=== PATIENT | female | born 1960 | race Caucasian/White ===

== ENCOUNTER 2020-01-07 11:39 | Inpatient (IN) | payer MEDICAID ==
[2020-01-07] VITALS (7 sets, daily range): BP systolic 112–141; BP diastolic 70–80
[~2020-01-07] VITALS: Ht 152.4 cm; Wt 58.9 kg
[2020-01-07] MEDS ORDERED: ACETAMINOPHEN325 MG PO (11:47)
[2020-01-07] MEDS ORDERED: ZYLOPRIM100 MG PO (11:48)
[2020-01-07] MEDS ORDERED: NEURONTIN 400400 MG PO (11:48)
[2020-01-07] MEDS ORDERED: LEVOXYL25 MCG PO (11:48)
[2020-01-07] MEDS ORDERED: ASPIRIN325 MG PO (11:48)
[2020-01-07] MEDS ORDERED: BETAPACE 80 MG80 MG PO (11:49)
[2020-01-07] MEDS ORDERED: OMEPRAZOLE20 M1 PO (11:49)
[2020-01-07] MEDS ORDERED: TYLENOL #4 W/CO1 TAB PO (11:49)
[2020-01-07] MEDS ORDERED: PROTONIX40 MG PO (11:50)
[2020-01-07 13:28] LABS: HEMATOCRIT 33.9 % (36.0-48.0); HEMOGLOBIN 9.1 g/dL (12-16); MCH 23.9 pg (26.0-34.0); MCHC 26.8 g/dL (31.0-37.0); MCV 89.2 fL (80.0-100.0); MEAN PLATELET VOLUME 8.7 fL (7.4-10.4); PLATELET COUNT 547 10x3/uL (130-400); RDW 19.8 % (11.5-14.5); WBC 30.5 10x3/uL (4.8-10.8)
[2020-01-07 13:31] LABS: APTT 30.8 SECONDS (22.8-39.4); CALC OSMOLALITY 264 mosm/kg (275-300); CALCIUM 7.9 mg/dL (8.5-10.1); CARBON DIOXIDE 27.5 mmol/L (21.0-32.0); CHLORIDE - SERUM 98 mmol/L (98-107); CREATININE - SERUM 0.9 mg/dL (0.6-1.3); GLUCOSE 108 mg/dL (74-106); INR 1.05 (0.85-1.17); POTASSIUM - SERUM 4.2 mmol/L (3.5-5.1); PROTIME 13.7 SECONDS (11.6-15.0); SODIUM 130 mmol/L (136-145); UREA NITROGEN 20 mg/dL (7-18); eGFR NON AFRICAN AMERICAN 67 mL/min (90-120)
[2020-01-07 13:48] LABS: ALBUMIN 2.6 g/dL (3.4-5.0); ALKALINE PHOSPHATASE 96 U/L (30-120); ALT (SGPT) 9 U/L (10-68); BILIRUBIN - TOTAL 0.28 mg/dL (0.2-1.3); CKMB 0.7 U/L (0.0-3.6); CREATINE KINASE 43 UL (21-215); MAGNESIUM - SERUM 1.9 mg/dL (1.8-2.4); PROTEIN - SERUM 8.2 g/dL (6.4-8.2); TROPONIN-I < 0.017 ng/mL (0.000-0.060)
[2020-01-07 15:10] LABS: LYMPHOCYTES 9 % (15-50); MONOCYTES 1 % (2-11); NEUTROPHILS 90 % (40-80); PLATELET ESTIMATE INCREASED
--- NOTE | 2020-01-07 17:17 | NUR ---
CALLED MED 2 TO GIVE REPORT. MARIA GUADALUPE IN ROOM AND UNABLE TO TAKE REPORT, WILL CALL BACK.
--- NOTE | 2020-01-07 19:00 | NUR ---
CODE SEPSIS CALLED TO 2134. PT NOTED TO HAVE TEMP 101.1 HR 111 SINUS TACK, WBC 30. BLOOD CULTURES X2 ORDERED STAT WELL LACTIC ACID. DR MAIN PAGED BEN MOJICA CALLED BACK GIVEN UPDATE. STATED WOULD PUT OWN ORDERS IN FOR ABX AND FLUIDS. SEPSIS SHEET HANDOFF COMPLETE BY CHANDNI CONCEPCION LPN.
[2020-01-07 19:18] LABS: CKMB 0.5 U/L (0.0-3.6); CREATINE KINASE 72 UL (21-215); TROPONIN-I < 0.017 ng/mL (0.000-0.060)
[2020-01-08] VITALS (15 sets, daily range): BP systolic 94–152; BP diastolic 60–90; Ht 152.4 cm; Wt 58.9 kg
[2020-01-08 00:14] LABS: BILIRUBIN NEGATIVE (NEGATIVE); GLUCOSE NEGATIVE (NEGATIVE); KETONE NEGATIVE (NEGATIVE); NITRITE NEGATIVE (NEGATIVE); SPECIFIC GRAVITY 1.015 (1.005-1.020); UROBILINOGEN NORMAL (NORMAL)
[2020-01-08] MEDS ORDERED: BENTYL 20 MG TA20 MG PO (01:35)
[2020-01-08 02:49] LABS: BASOPHILS 0 % (0-2); EOSINOPHILS 0 % (0-7); HEMATOCRIT 31.2 % (36.0-48.0); HEMOGLOBIN 8.6 g/dL (12-16); IMMATURE GRANULOCYTES 0.5 % (0-5); LYMPHOCYTES 2.7 % (15-50); MCHC 27.6 g/dL (31.0-37.0); MCV 87.2 fL (80.0-100.0); MEAN PLATELET VOLUME 8.7 fL (7.4-10.4); MONOCYTES 8.5 % (2-11); NEUTROPHILS 88.3 % (40-80); PLATELET COUNT 463 10x3/uL (130-400); RBC 3.58 10x6/uL (4.00-5.40); RDW 19.5 % (11.5-14.5); WBC 30.2 10x3/uL (4.8-10.8)
[2020-01-08 03:16] LABS: ALBUMIN 2.2 g/dL (3.4-5.0); ALKALINE PHOSPHATASE 81 U/L (30-120); ALT (SGPT) 8 U/L (10-68); BILIRUBIN - TOTAL 0.28 mg/dL (0.2-1.3); CALC OSMOLALITY 265 mosm/kg (275-300); CALCIUM 7.4 mg/dL (8.5-10.1); CARBON DIOXIDE 27.2 mmol/L (21.0-32.0); CHLORIDE - SERUM 100 mmol/L (98-107); CKMB 0.3 U/L (0.0-3.6); CREATINE KINASE 143 UL (21-215); CREATININE - SERUM 0.7 mg/dL (0.6-1.3); GLUCOSE 119 mg/dL (74-106); MAGNESIUM - SERUM 1.9 mg/dL (1.8-2.4); POTASSIUM - SERUM 3.7 mmol/L (3.5-5.1); PROTEIN - SERUM 7.3 g/dL (6.4-8.2); SODIUM 132 mmol/L (136-145); TROPONIN-I < 0.017 ng/mL (0.000-0.060); eGFR NON AFRICAN AMERICAN 90 mL/min (90-120)
[2020-01-08 03:20] LABS: UREA NITROGEN 13 mg/dL (7-18)
--- NOTE | 2020-01-08 09:23 | NUR ---
PT OPENS EYES AND RESPONDS BUT FALLS ASLEEP QUICKLY. LYING IN BED ON BACK. STATES SHE FEELS TIRED. CL IN REACH, SRX2
--- NOTE | 2020-01-08 10:26 | NUR ---
WENT INTO PTS ROOM AT 0950 TO FIX IV PUMP. PT STATES SHE NEEDS TO USE THE BATHROOM. STATES SHE WANTS TO WALK. I TRIED FOR *10* MINUTES TO ASSIST HER IN GETTING UP. PT KEPT DRAMATICALLY FALLIING BACK INTO BED. INFORMED PT WE WOULDJ UST BE USING A BEDPAN IF SHE WS SO WEAK SHE COULD NOT WLAK. GOT BED CARTAGENA. TOLD PT TO ROLL. BARE IN MIND PT WAS PREVIOUSLY UP AD QUE. PT WOULD.NOT.ROLL. SHE KEP SIGHING AND STATING HSE WS WEAK AND COULDN'T ROLL BEACUSE HER ARM HURTS TOO MUCH OTDAY AND COMPLAINED I WAS NOT DOING IT RIGHT. I INFORMED PT I WOULD JUST HAVE TO ROLL HER THEN, I ATTEMPTED AN DPT SCREAMED AT ME. AT THAT POINT IT HAD BEEN ALMOST 20 MINUTES IN THE ROOM. FUENTES ZELAYA ARRIVED TO [facility] SINCE PT STATED SHE COULD NOT DO IT AND I COULD NOT DO IT. PT STILL DID IT EXTREMELY SLOWLY (ROLLING), FINALLY RN AND I HAD TO JUST ROLL HER AND PUT THE BED CARTAGENA ON. PT WAS UNAHPPY BUT I INFORMED HER IF HSE NEEDED TO URINATE AND COULDN'T WALK AND COULD NOT ROLL WE WOULD HAVE TO ASSIST HER. PT SAT ON BEDPAN FOR 5 MINUTES AND ANGRILY STATED SHE COULDN'T DO IT SHE WANTED TO GO TO THE BATHROOM. PT STATES SHE CAN WALK, THAT SHE DIDN'T FALL BACK INTO BED EARLIER (WHICH I OBSERVED HAPPEN WITH MY OWN EYES) AND THAT I JUST ASSISTED HER WRONG. RN AND I TOLD HER FINE, TOOK OFF THE BEDPAN MUCH TO PTS ANGER BECAUSE SHE STATED WE WERE HURTING HER. THIS WAS NOT OUR INTENTION WE JUST NEEDED HER TO GO TO THE BATHROOM. PT TOOK BEDPAN OUT HERSELF. WE ATTEMTPED TO ASSIST WITH SITTING HER ON THE SIDE OF THE BED, PT STATES NO THAT SHELL NEED TO ARRANGE HER PILLOWS JUST RIGHT FIRST. WAITED ANOTHER SEVERAL MINUTES FOR THAT. PT FINALLY ALOUD US TO SIT HER UP ON THE SITDE OF THE BED. SHE WALKED WITH STANDBY ASSIST TO COMMODE AND SATDOWN WITHOUT DIFFICULTY. PT TOOK SEVERAL MORE MINUTES TO URINATE. ASSISTED BACK TO BED. PT WANTED US TO STAY IN THERE AND ASSIST HER WITH ALL MINOR MINUPLATIONS OR HER PILLOWS AND BLANKETS. INSISTED WE LIFT HER LEGS INTO BED SHE COULD NOT DO IT POST WALKING WITHOUT DIFFICULTY. PT NOWBACK IN BED. CL IN REACH, SRX2.
--- NOTE | 2020-01-08 11:22 | NUR ---
I have reviewed this patient and I concur with the Shift Assessment completed by the Licensed Practical Nurse today this shift.
--- NOTE | 2020-01-08 15:18 | NUR ---
PT AWAKE AND CONFUSED. ORDERS WERE PUT IN FOR PREOP BUT NOT ACTUAL CONSENTS. DR LOCKWOOD ROUNDED, I WENT INTO THE ROOM WITH HIM. DURING THAT TIME PT CALLED. WAS DISCOVERED PT HAS EXTENSIVE GI HISTORY WITH MULTIPLE SURGERIES (TYPE UNCLEAR) AND AT LEAST ONE ATTEMPT TO OPEN A STRICTURE SOMEWHERE. RADIOLOGY CAME IN, DR. LOCKWOOD ORDERED HER TO DO A I/V CONTRAST CT ALONG WITH THE ORAL. THIS WAS UNEXPECTED. AT THIS TIME ANASTHESIA CAME IN AND DISCOVERED PT WAS COVID PUI. THIS WAS AN UNPLESANT DISCOVERY FOR THEM. PT WAS IMMEDIATELY TAKEN TO CT PER MANDIE. AT THAT TIME THERE WERE NO ORDERS. SURGERY WAS NOT PLEASED BUT I COULD NOT GET CONCSENTS SIGNED THAT WERE NOT AVALIABLE. PT IN SURGERY.
--- NOTE | 2020-01-08 17:15 | NUR ---
RECEIVED FROM OF, PER BED. SKIN WARM AND DRY. ABD DRESSING DRY AND INTACT. NIRMALA DRAINS X [address]. SEROUS DRAINAGE IN BOTH CONTAINERS. WEBSTER CATH PATENT AND DRAINING CLEAR AMRITA URINE. MONITOR SINUE TACH. IV RIGHT AND LEFT FOREARM. NS INFUSING AT 100 ML HOUR PER PUMP.
[2020-01-09] VITALS (24 sets, daily range): BP systolic 90–114; BP diastolic 56–82
[2020-01-09 03:57] LABS: HEMATOCRIT 29.3 % (36.0-48.0); MCHC 27.3 g/dL (31.0-37.0); MCV 87.7 fL (80.0-100.0); MEAN PLATELET VOLUME 8.5 fL (7.4-10.4); PLATELET COUNT 418 10x3/uL (130-400); RBC 3.34 10x6/uL (4.00-5.40); RDW 19.2 % (11.5-14.5); WBC 33.1 10x3/uL (4.8-10.8)
[2020-01-09 04:07] LABS: ALBUMIN 1.5 g/dL (3.4-5.0); ALKALINE PHOSPHATASE 63 U/L (30-120); ALT (SGPT) 4 U/L (10-68); BILIRUBIN - TOTAL 0.35 mg/dL (0.2-1.3); CALC OSMOLALITY 263 mosm/kg (275-300); CHLORIDE - SERUM 104 mmol/L (98-107); CREATININE - SERUM 0.6 mg/dL (0.6-1.3); GLUCOSE 103 mg/dL (74-106); POTASSIUM - SERUM 3.2 mmol/L (3.5-5.1); PROTEIN - SERUM 5.8 g/dL (6.4-8.2); SODIUM 133 mmol/L (136-145); UREA NITROGEN 7 mg/dL (7-18); eGFR NON AFRICAN AMERICAN > 90 mL/min (90-120)
[2020-01-09 04:10] LABS: LYMPHOCYTES 12 % (15-50); MONOCYTES 6 % (2-11); NEUTROPHILS 82 % (40-80)
[2020-01-09 04:11] LABS: PLATELET ESTIMATE INCREASED
--- NOTE | 2020-01-09 09:41 | NUR ---
0700 REPORT RECIEVED AND CARE ASSUMEFD OF PATIENT.. SEE FLOW SHEET FOR SHIFT ASSESMENT FINDINGS.. PT IS AWAKE AND ALERT.. TENDER TO TOUCH ABDOMEN .. JPX2 DRESSING CHANGE DONE .. RIGHT NIRMALA IS DRAINING MORE THAN LEFT SEROUS DRAINAGE.. 0800 NEW SYRINGE OF MORPHINE LOCOMOTIVE LUBRICATING SYSTEMS CLERK PLACED.. PATIENT IS USING THE LOCOMOTIVE LUBRICATING SYSTEMS CLERK TO MAX AMOUNT.. 0900 SLEEPING AT THIS TIME..
--- NOTE | 2020-01-09 14:12 | NUR ---
1100 REASSESMENT COMPLETE .. PIV CHANGED TO RIGHT FOREARM... LEFT FOREARM IS PUFFY BUT NOT RED.. 1200 TALKING ON PHONE
--- NOTE | 2020-01-09 18:13 | NUR ---
1400 SL EEPING 1500 COMPLETE CHG BATH GIVEN MIRLANDE MARIA GE AND DRESSING CHANGE DONE 1645 DR LOCKWOOD IN TO SEE PATIENT ... UPDATE GIVEN.. 1700 SLEEPING
[2020-01-10] VITALS (24 sets, daily range): BP systolic 91–131; BP diastolic 62–91
[2020-01-10 02:22] LABS: UDS - AMPHET NEGATIVE QUAL (NEGATIVE); UDS - BARB NEGATIVE QUAL (NEGATIVE); UDS - BENZO NEGATIVE QUAL (NEGATIVE); UDS - COCAINE NEGATIVE QUAL (NEGATIVE); UDS - OPIATE POSITIVE QUAL (NEGATIVE); UDS - PCP NEGATIVE QUAL (NEGATIVE); UDS - THC NEGATIVE QUAL (NEGATIVE)
--- NOTE | 2020-01-10 02:29 | NUR ---
1899-ASSESSMENT COMPLETED. 1909- CALLED [facility] TO ASK ABOUT DIFLUCAN NOT BEING APPROVED. THEY SAID THAT WOULD FIX IT. 2099-VSS. AWAKE. TALKING TO ON PHONE. [id number] COMPLETED. NO CHANGES SINCE LAST ASSESSMENT 99-EYES CLOSED. EASILY WAKES. VSS
[2020-01-10 04:19] LABS: ALBUMIN 1.4 g/dL (3.4-5.0); ALKALINE PHOSPHATASE 58 U/L (30-120); BILIRUBIN - TOTAL 0.25 mg/dL (0.2-1.3); CALC OSMOLALITY 271 mosm/kg (275-300); CARBON DIOXIDE 29.6 mmol/L (21.0-32.0); CHLORIDE - SERUM 103 mmol/L (98-107); CREATININE - SERUM 0.5 mg/dL (0.6-1.3); GLUCOSE 100 mg/dL (74-106); PROTEIN - SERUM 5.3 g/dL (6.4-8.2); SODIUM 137 mmol/L (136-145); UREA NITROGEN 7 mg/dL (7-18); eGFR NON AFRICAN AMERICAN > 90 mL/min (90-120)
[2020-01-10 04:29] LABS: ALT (SGPT) 5 U/L (10-68)
[2020-01-10 04:35] LABS: BASOPHILS 0 % (0-2); EOSINOPHILS 0.1 % (0-7); HEMATOCRIT 25.3 % (36.0-48.0); HEMOGLOBIN 6.9 g/dL (12-16); IMMATURE GRANULOCYTES 0.5 % (0-5); LYMPHOCYTES 3.7 % (15-50); MCH 23.9 pg (26.0-34.0); MCHC 27.3 g/dL (31.0-37.0); MCV 87.5 fL (80.0-100.0); MEAN PLATELET VOLUME 8.5 fL (7.4-10.4); MONOCYTES 7.8 % (2-11); NEUTROPHILS 87.9 % (40-80); PLATELET COUNT 409 10x3/uL (130-400); RBC 2.89 10x6/uL (4.00-5.40); RDW 19.3 % (11.5-14.5); WBC 27.5 10x3/uL (4.8-10.8)
--- NOTE | 2020-01-10 07:36 | NUR ---
0300-REASSESSMENT COMPLETED. 0500- HGB 6.9. ORDER FROM DR. LOCKWOOD FOR 2 UNITS OF PRBC. SAY 2 ALREADY READY IN THE BLOOD BANK. STARTED FIRST UNIT AT AROUND 0530.
--- NOTE | 2020-01-10 07:38 | NUR ---
BED CANNOT GET WEIGHT
--- NOTE | 2020-01-10 11:02 | NUR ---
Nutrition follow-up Remains NPO with NGT->LIWS ProcalAmine PPN @ 30 ml/hr Labs reviewed No return of bowel function at this time Wt: 129# If pt remains with no bowel function will need to start TPN to bettet meet pts estimated energy needs. RDN following.
--- NOTE | 2020-01-10 11:22 | CN ---
PATIENT NAME:HUMBERTO WILSON MEDICAL RECORD: [id number] : 56 LOCATION:[facility].2306 ADMIT DATE: 01/07/20 ACCOUNT: [id number] CONSULTING PHYSICIAN: CHINYERE GARCIA MD REFERRING PHYSICIAN: YANELIS MAIN MD DATE OF CONSULTATION: 01/09/2020 HISTORY OF PRESENT ILLNESS: A 59-year-old female with a history of atrial fibrillation, obstructive pulmonary disease, ongoing tobacco use, hypothyroidism on replacement, transferred from outside facility with chest pain as well as subsequently found to have a perforated gastric ulcer, underwent urgent surgery via Dr. Hall. She is doing much better at this point. We are asked to see her concerning her cardiovascular status. PAST MEDICAL HISTORY: Includes, 1. History of hypertension. 2. Atrial fibrillation. 3. Obstructive pulmonary disease. 4. General arthritis. 5. Hypothyroidism, on replacement. MEDICATIONS: Betapace 80 b.i.d., Synthroid 25 mcg every day, and Bentyl 20 mg p.o. day. ALLERGIES: HYDROCORTISONE. SOCIAL HISTORY: Smokes about a pack a day and drinks alcohol socially only. No set of exercise program but easily takes care of her ADLs. REVIEW OF SYSTEMS: The patient reports easy bruising but reports no swollen glands. The patient reports no fever, no night sweats, no significant weight gain, no significant weight loss. No significant exercise tolerance. The patient reports no dry eyes, no irritation, no vision change. Patient reports no difficulty hearing and no ear pain. Patient reports no frequent nose bleeds or nose and sinus problems. Patient reports on arm pain on exertion. No shortness of breath while lying down. No history of heart murmur. Patient reports no cough, no wheezing or coughing up blood. Patient reports no abdominal pain, no vomiting. Normal appetite. No diarrhea and not vomiting blood. No nausea and no constipation. Patient reports no incontinence. No difficulty urinating. No hematuria. No increased frequency. Patient reports no muscle aches. No weakness, no arthralgias, no back pain. No swelling of the extremities. Patient reports no abnormal mole, no jaundice, no rashes. Reports no loss of consciousness. No weakness and no numbness. No seizures, dizziness, or headaches. The patient reports no depression, no sleep disturbance, feeling safe in a relationship and no alcohol abuse. Patient reports on fatigue. Reports no runny nose or sinus pressure. No itching, no hives, and no frequent sneezing. PHYSICAL EXAMINATION: GENERAL: Pleasant female in no acute distress, appears stated age. VITAL SIGNS: Blood pressure 197/65, pulse 116 and irregular. HEENT: Normocephalic, atraumatic. NECK: No JVD or bruit. HEART: Regular. LUNGS: Prolonged respiratory phase with expiratory wheezes. CONSULT REPORT [id number] HUMBERTO WILSON ABDOMEN: Somewhat quiescent. EXTREMITIES: Show 1+ pulses. No edema. IMPRESSION: Atrial fibrillation: I suspect secondary to current underlying severe illness and increased catecholamine drive. He is having occasional P waves on diltiazem drip. We will continue this agent p.o. We will restart true antiarrhythmics. I suspect will be able to restore normal sinus rhythm given her sinus rhythm on admission. Further recommendations based on clinical course. TRANSINT:[id number] Voice Confirmation ID: [id number] DOCUMENT ID: [id number] CHINYERE GARCIA MD at 1122 CC: [id number] DICTATION DATE: 01/09/20 1234 SANITATION TRUCK CLEANER: 01/09/[address] [facility] [address] [place] [address]
--- NOTE | 2020-01-10 13:45 | NUR ---
PATIENT AWAKE,ALERT AND VISITNG WITH VIA [employer] ON PHONE. REPOSITIONED TO LEFT SIDE FOR COMFORT. OFFERED PATIENT BATH AND LINEN CHANGE. PATIENT REFUSED. PATIENT STATED LETS DO IT TOMORROW. PATIENT DENIES ANY NEEDS OR PAIN. WILL CONTINUE WITH PLAN OF CARE. SR U[P X 2 BED IN LOW POSITION AND CALL LIGHT IN REACH.
--- NOTE | 2020-01-10 13:55 | NUR ---
CALLED TO PATIENTS ROOM. PATIENT COMPLAINS OF NAUSEA. MEDICATED PER MAR WITH ZOFRAN IV. MORPHINE PUMP EMPTY. NEW MORPHINE 30 MG/30 ML CARTRIGDE PLACED. PATIENT DENIES ANY OTHER NEEDS. WILL CONTINUE TO MONITOR. SR UP X 2 BED IN LOW POSITION AND CALL LIGHT IN REACH.
--- NOTE | 2020-01-10 18:51 | NUR ---
PATIENT COMPLAINS OF NAUSEA. MEDICATED PER MAR WITH ZOFRAN IV. WILL CONTINUE TO MONITOR. SR UP X 2 BED IN LOW POSITION AND CALL LIGHT IN REACH.
--- NOTE | 2020-01-10 19:00 | NUR ---
REPORT RECEIVED. PT AAOX4, NO ACUTE DISTRESS NOTED. PIV IN RT FOREARM, RT WRIST INFUSING, SEE IV FLOWSHEET. NIRMALA DRAIN X2 IN ABDOMEN, ASSESSMENT COMPLETED, SEE FLOWSHEET. WILL CONTINUE TO MONITOR.
--- NOTE | 2020-01-10 21:00 | NUR ---
PT RESTING IN BED, NO ACUTE DISTRESS NOTED.
--- NOTE | 2020-01-10 23:15 | NUR ---
PT TRANSFERRED TO CVICU AT THIS TIME ACCOMPANIED BY NURSING STAFF.
--- NOTE | 2020-01-10 23:30 | NUR ---
REC'D PT FROM ICU, PT ASSISTED INTO CV ICU BED, MONITORS HOOKED UP AND WORKING, PT AWAKE AND ALERT, NGT TO SUCTION, VSS, CALL LIGHT WITHIN REACH, SEE FLOW SHEET FOR FURTHER DETAILS. WILL CONTINUE TO OBSERVE.
[2020-01-11] VITALS (15 sets, daily range): BP systolic 105–152; BP diastolic 62–86
--- NOTE | 2020-01-11 01:00 | NUR ---
ICE PACK AND ICE CHIPS BROUGHT TO PT PER PTS REQUEST, MONITORS ON AND WORKING, VSS, CALL LIGHT WITHIN REACH, WILL CONTINUE TO OBSERVE.
--- NOTE | 2020-01-11 03:00 | NUR ---
PT LYING IN BED RESTING, MONITORS ON AND WORKING, VSS, CALL LIGHT WITHIN REACH, WILL CONTINUE TO OBSERVE.
--- NOTE | 2020-01-11 05:36 | NUR ---
NIRMALA DRESSINGS CHANGED. LINEN CHANGE AND NEW GOWN ON AT THIS TIME WELL. CALL LIGHT WITHIN REACH, WILL CONTINUE TO OBSERVE.
[2020-01-11 05:52] LABS: HEMATOCRIT 31.5 % (36.0-48.0); HEMOGLOBIN 9.3 g/dL (12-16); MCH 25.3 pg (26.0-34.0); MCHC 29.5 g/dL (31.0-37.0); MCV 85.8 fL (80.0-100.0); MEAN PLATELET VOLUME 8.3 fL (7.4-10.4); PLATELET COUNT 360 10x3/uL (130-400); RBC 3.67 10x6/uL (4.00-5.40); RDW 18.2 % (11.5-14.5); WBC 20.5 10x3/uL (4.8-10.8)
[2020-01-11 06:22] LABS: ALBUMIN 1.4 g/dL (3.4-5.0); ALKALINE PHOSPHATASE 69 U/L (30-120); ALT (SGPT) 7 U/L (10-68); BILIRUBIN - TOTAL 0.26 mg/dL (0.2-1.3); CALC OSMOLALITY 273 mosm/kg (275-300); CALCIUM 7.6 mg/dL (8.5-10.1); CARBON DIOXIDE 27.4 mmol/L (21.0-32.0); CHLORIDE - SERUM 104 mmol/L (98-107); CREATININE - SERUM 0.4 mg/dL (0.6-1.3); GLUCOSE 101 mg/dL (74-106); MAGNESIUM - SERUM 1.9 mg/dL (1.8-2.4); PHOSPHOROUS 2.2 mg/dL (2.5-4.9); PROTEIN - SERUM 5.8 g/dL (6.4-8.2); SODIUM 138 mmol/L (136-145); UREA NITROGEN 7 mg/dL (7-18); eGFR NON AFRICAN AMERICAN > 90 mL/min (90-120)
--- NOTE | 2020-01-11 09:50 | NUR ---
0700 BEDSIDE REPORT RECEIVED FROM DEB FRUIT CANNER COMPLETE PATIENT CONFUSED NGT IN RIGHT NARE HOOLED UP TO LOW INTERMITTANT SUCTION DRAINING GREEN BILE PATIENT USING SHOE TRIMMER OF MORPHINE
[2020-01-11 10:12] LABS: ANISOCYTOSIS OCC; LYMPHOCYTES 8 % (15-50); MONOCYTES 10 % (2-11); NEUTROPHILS 80 % (40-80); PLATELET ESTIMATE NORMAL
--- NOTE | 2020-01-11 11:00 | NUR ---
1100 UTILIZING PERSONNEL TECHNICIAN MORPHINE FOR PAIN CONTROL
--- NOTE | 2020-01-11 14:07 | NUR ---
0900 REPOSITIONED IN BED PLACED ICE BAG UNDER NECK REQUESTED
--- NOTE | 2020-01-11 19:00 | NUR ---
SHIFT ASSESSMENT COMPLETED. PT CARE ASSUMED, MONITORS ON AND WORKING, VSS, CALL LIGHT WITHIN REACH, SEE FLOW SHEET FOR FURTHER DETAILS. WILL CONTINUE TO OBSERVE.
--- NOTE | 2020-01-11 20:42 | MORECARE ---
CASE MANAGEMENT DISCHARGE SUMMARY PATIENT: HUMBERTO WILSON UNIT: [id number] ADM DATE: 01/07/20 AGE: 59 : 56 SEX: F [facility] AUTHOR: FELIZ MOBLEY PHYSICIAN: REFERRING PHYSICIAN: YANELIS MAIN MD DATE OF SERVICE: 01/11/20 Discharge Plan Patient Name: HUMBERTO WILSON Facility: [facility]:[place] : 1960 Planned Disposition: Home with Home Health Anticipated Discharge Date: Discharge Date: Expected LOS: Initial Reviewer: [email or web address] Initial Review Date: 01/07/2020 Generated: 01/11/20 9:41 pm DCPIA - Discharge Planning Initial Assessment Updated by AMBER: Yessica Childers on 01/11/20 8:41 pm * Is the patient Alert and Oriented? Yes * How many steps to enter\exit or inside your home? RAMPS * PCP LILLIE * Pharmacy [facility] * Preadmission Environment Home with Family * ADLs Independent * Other Equipment WALKER, W/C , NEBULIZER, SC * List name and contact numbers for known caregivers / representatives who currently or will assist patient after discharge: YANELIS MARIA EUGENIA SO - [phone] * Verbal permission to speak to the caregivers and representatives has been obtained from the patient. Yes * Community resources currently utilized None * Additional services required to return to the preadmission environment? No * Can the patient safely return to the preadmission environment? Yes * Has this patient been hospitalized within the prior 30 days at any hospital? No Coverage Notice Reviewer: [id number] Nery Childers Notice Issued Date-Time: 01/11/2020 20:34 Notice Type: Patient Choice Letter Notice Delivered To: Patient Relationship to Patient: Self Drag Sawyer Name: Delivery Method: HAND - Hand Delivered Jaqui Days: Prior Verbal Notification: Recipient Understood Notice: Yes Recipient Signature: Yes Med Rec Note Co-signed by Attending: Coverage Notice Comment: LORIN GARDUNO Patient Name: HUMBERTO WILSON Page [phone] at 2042 All edits/amendments must be made on the electronic document DICTATION DATE: 01/11/202040 OPERATIONS BOARDMAN: DESIRAE 01/11/202040 RPT#: [id number] DC DATE: STATUS: ADM IN [facility] [address] [place] [address] END OF REPORT
--- NOTE | 2020-01-11 20:48 | MORECARE ---
CASE MANAGEMENT DISCHARGE SUMMARY PATIENT: HUMBERTO WILSON UNIT: [id number] ADM DATE: 01/07/20 AGE: 59 : 56 SEX: F ROOM/BED: [facility] AUTHOR: ITZ,DOC PHYSICIAN: REFERRING PHYSICIAN: YANELIS MAIN MD DATE OF SERVICE: 01/11/20 Discharge Plan Patient Name: HUMBERTO WILSON Facility: [facility]:[place] : 1960 Planned Disposition: Home with Home Health Anticipated Discharge Date: Discharge Date: Expected LOS: Initial Reviewer: [email or web address] Initial Review Date: 01/07/2020 Generated: 01/11/20 9:48 pm Comments DCP- Discharge Planning Updated by [email or web address]: Yessica Childers on 01/11/20 7:[address] Patient Name: HUMBERTO WILSON Admission Status: ER Accout number: [id number] Admission Date: 01-07-2020 : 1960 Admission Diagnosis:SEPSIS, UNSPECIFIED ORGANISM Attending: YANELIS MAIN Current LOS: 4 Anticipated DC Date: Planned Disposition: Home with Home Health Primary Insurance: MEDICAID [place] Discharge Planning Comments: CM met with patient to complete initial dc planning assessment. CM educated patient on the CM role and verbal consent given by patient to complete assessment. Patient lives at home with family. Patient is independent. At discharge patient plans to return home and feels this is a safe discharge. CM discussed availability of home health, rehab services, and medical equipment. Patient states that she has [facility] and plans to resume care upon discharge. MAHENDRA signed Patient will have family to transport home. Patient denied known discharge needs at this time. CM will continue to follow and will assist as needed with dc plans/needs. Marketing Services Manager: Yessica Childers DCPIA - Discharge Planning Initial Assessment Updated by [id number]: Yessica Childers on 01/11/20 8:41 pm * Is the patient Alert and Oriented? Yes * How many steps to enter\exit or inside your home? RAMPS * PCP LILLIE * Pharmacy [facility] * Preadmission Environment Home with Family * ADLs Independent * Other Equipment WALKER, W/C , NEBULIZER, SC * List name and contact numbers for known caregivers / representatives who currently or will assist patient after discharge: YANELIS DEL CID - SO - [phone] * Verbal permission to speak to the caregivers and representatives has been obtained from the patient. Yes * Community resources currently utilized Home Health * Please name any agencies selected above. ROSA ELENA JANNET Nery GARDUNO * Additional services required to return to the preadmission environment? No * Can the patient safely return to the preadmission environment? Yes * Has this patient been hospitalized within the prior 30 days at any hospital? No Coverage Notice Reviewer: [id number] Nery Chiledrs Notice Issued Date-Time: 01/11/2020 20:34 Notice Type: Patient Choice Letter Notice Delivered To: Patient Relationship to Patient: Self Perinatal Instructor Name: Delivery Method: HAND - Hand Delivered Jaqui Days: Prior Verbal Notification: Recipient Understood Notice: Yes Recipient Signature: Yes Med Rec Note Co-signed by Attending: Coverage Notice Comment: LORIN GARDUNO Last DP export: 01/11/20 7:42 pm Patient Name: HUMBERTO WILSON Page [phone] at 204 All edits/amendments must be made on the electronic document DICTATION DATE: 01/11/202047 CHIEF NURSE EXECUTIVE: DESIRAE 01/11/202047 RPT#: [id number] DC DATE: STATUS: ADM IN [facility] [address] [place] [address] END OF REPORT
--- NOTE | 2020-01-11 21:00 | NUR ---
DR LOCKWOOD AT BEDSIDE, NO NEW ORDERS RECD
--- NOTE | 2020-01-11 23:00 | NUR ---
PT TURNED AND REPOSITIONED FOR COMFORT, MONITORS ON AND WORKING, VSS, CALL LIGHT WITHIN REACH, SEE FLOW SHEET FOR FURTHER DETAILS. WILL CONTINUE TO OBSERVE.
[2020-01-12] VITALS (9 sets, daily range): BP systolic 122–146; BP diastolic 63–90
--- NOTE | 2020-01-12 01:00 | NUR ---
NO CHANGES, PT LYING IN BED RESTING, MONITORS ON AND WORKING VSS. WILL CONTINUE TO OBSERVE.
--- NOTE | 2020-01-12 03:00 | NUR ---
PT TURNED AND REPOSITIONED FOR COMFORT, MONITORS ON AND WORKING, VSS, CALL LIGHT WITHIN REACH, WILL CONTINUE TO OBSERVE.
--- NOTE | 2020-01-12 05:00 | NUR ---
PT TURNED AND REPOSTIONED FOR COMFORT. MONITORS ON AND WORKING, VSS CALL LIGHT WITHIN REACH, WILL CONTINUE TO OBSERVE.
[2020-01-12 06:25] LABS: BASOPHILS 0.1 % (0-2); EOSINOPHILS 1.5 % (0-7); HEMATOCRIT 32.3 % (36.0-48.0); HEMOGLOBIN 9.5 g/dL (12-16); IMMATURE GRANULOCYTES 0.9 % (0-5); LYMPHOCYTES 6.2 % (15-50); MCH 25.2 pg (26.0-34.0); MCHC 29.4 g/dL (31.0-37.0); MCV 85.7 fL (80.0-100.0); MEAN PLATELET VOLUME 8.7 fL (7.4-10.4); MONOCYTES 9.1 % (2-11); NEUTROPHILS 82.2 % (40-80); PLATELET COUNT 394 10x3/uL (130-400); RBC 3.77 10x6/uL (4.00-5.40); WBC 17.1 10x3/uL (4.8-10.8)
[2020-01-12 06:29] LABS: ALBUMIN 1.3 g/dL (3.4-5.0); ALKALINE PHOSPHATASE 67 U/L (30-120); ALT (SGPT) 6 U/L (10-68); BILIRUBIN - TOTAL 0.34 mg/dL (0.2-1.3); CALC OSMOLALITY 264 mosm/kg (275-300); CALCIUM 7.2 mg/dL (8.5-10.1); CARBON DIOXIDE 29.3 mmol/L (21.0-32.0); CHLORIDE - SERUM 102 mmol/L (98-107); CREATININE - SERUM 0.3 mg/dL (0.6-1.3); GLUCOSE 87 mg/dL (74-106); MAGNESIUM - SERUM 1.8 mg/dL (1.8-2.4); PROTEIN - SERUM 5.6 g/dL (6.4-8.2); SODIUM 134 mmol/L (136-145); UREA NITROGEN 7 mg/dL (7-18); eGFR NON AFRICAN AMERICAN > 90 mL/min (90-120)
[2020-01-12 06:32] LABS: POTASSIUM - SERUM 3.5 mmol/L (3.5-5.1)
--- NOTE | 2020-01-12 08:20 | NUR ---
0700 BEDSIDE REPORT RECEIVED FROM OUTGOING HOT SEALING MACHINE OPERATOR COMPLETE FOLLOWING ELECTROLYTE PROTOCOL WITH POTASSIUM REPLACEMENT RIGHT WRIST IV LEAKING AND RIGHT FOREARM INFILTRATING RESTARTED NEW IV 20 GAUGE TO LEFT HAND
--- NOTE | 2020-01-12 11:13 | NUR ---
Nutrition Follow-up: POD 4 lap Kenneth patch procedure for PUD with perforation and peritonitis. Receiving Procal @ 30 (provides 176 kcal, 22 g protein daily). Noted plans for upper GI gastrografin swallow on per surgery. Wt: 129.8# (01/07) Labs noted: Na 134, Ca 7.2, Alb 1.3 Meds noted: Carafate, Protonix, NS @ 125, Zofran, electrolyte protocol -PPN is inadequate to meet needs. If pt to remain NPO, rec more substantial nutrition support; RD available to assist as needed. -Monitor wt. -RD following.
--- NOTE | 2020-01-12 13:34 | NUR ---
POTASSIUM INFUSION FINISHED AT ABOUT 1330. LAB WILL REDRAW POTASSIUM SERUM AT 1730.
--- NOTE | 2020-01-12 15:36 | NUR ---
CARDIOLOGY WAS CONSULTED FOR TACHYCARDIA.
--- NOTE | 2020-01-12 17:35 | NUR ---
PT IS RESTING QUIETLY IN BED AT THIS TIME. SIDE RAILS UP. DENIES PAIN/NEEDS AT THIS TIME. NG TUBE IN PLACE. 4L O2 VIA NC IN PLACE.
--- NOTE | 2020-01-12 20:30 | NUR ---
PT BROUGHT TO FLOOR VIA BED, AOX4. TRANSFERED PT TO BED. NGT RIGHT NARE TO LIS. IV LEFT HAND INFUSING NS @ 125, PROTONIX @ 10, PROCAL @ 30, MORPHINE APPEALS ANALYST. NIRMALA DRAIN TO BOTH LEFT AND RIGHT SIDE ABD, DRESSING CDI. WEBSTER IN PLACE. O2 3L/NC. GOT PT ORIENTED TO ROOM, PLACED BELONGINGS IN REACH, CL IN REACH. DENIES OTHER NEEDS AT THIS TIME. WILL CTM
[2020-01-13] VITALS: BP 142/90
[2020-01-13 04:00] VITALS: BP 154/88
[2020-01-13 06:27] LABS: ALBUMIN 1.4 g/dL (3.4-5.0); ALKALINE PHOSPHATASE 62 U/L (30-120); ALT (SGPT) 5 U/L (10-68); BILIRUBIN - TOTAL 0.23 mg/dL (0.2-1.3); CALC OSMOLALITY 265 mosm/kg (275-300); CALCIUM 7.5 mg/dL (8.5-10.1); CARBON DIOXIDE 28.3 mmol/L (21.0-32.0); CHLORIDE - SERUM 102 mmol/L (98-107); GLUCOSE 98 mg/dL (74-106); MAGNESIUM - SERUM 1.6 mg/dL (1.8-2.4); PHOSPHOROUS 3.4 mg/dL (2.5-4.9); POTASSIUM - SERUM 3.5 mmol/L (3.5-5.1); PROTEIN - SERUM 5.7 g/dL (6.4-8.2); SODIUM 134 mmol/L (136-145); UREA NITROGEN 7 mg/dL (7-18)
[2020-01-13 06:29] LABS: CREATININE - SERUM 0.4 mg/dL (0.6-1.3); eGFR NON AFRICAN AMERICAN > 90 mL/min (90-120)
[2020-01-13 06:30] LABS: BASOPHILS 0.2 % (0-2); EOSINOPHILS 1.9 % (0-7); HEMATOCRIT 32.9 % (36.0-48.0); HEMOGLOBIN 9.8 g/dL (12-16); IMMATURE GRANULOCYTES 0.9 % (0-5); LYMPHOCYTES 6.7 % (15-50); MCH 25.5 pg (26.0-34.0); MCHC 29.8 g/dL (31.0-37.0); MCV 85.7 fL (80.0-100.0); MEAN PLATELET VOLUME 8.6 fL (7.4-10.4); MONOCYTES 9.2 % (2-11); NEUTROPHILS 81.1 % (40-80); PLATELET COUNT 369 10x3/uL (130-400); RBC 3.84 10x6/uL (4.00-5.40); WBC 16.5 10x3/uL (4.8-10.8)
[2020-01-13 12:00] VITALS: BP 147/84
[2020-01-13 16:00] VITALS: BP 140/83
--- NOTE | 2020-01-13 19:40 | NUR ---
DR MANDIE GAMBLE AT THIS TIME. VERBAL ORDER TO DC BILAT NIRMALA DRAINS AND CHANGE PT CLEAR LIQUID DIET, NO CARBONATED BEVERAGES, DO NOT ADVANCE
[2020-01-13 20:00] VITALS: BP 141/81
--- NOTE | 2020-01-13 20:00 | NUR ---
NILO NIRMALA DRAINS DC'D, PT TOLERATED WELL
[2020-01-14] VITALS: BP 138/76
[2020-01-14 04:00] VITALS: BP 127/83
[2020-01-14 07:25] LABS: CALC OSMOLALITY 267 mosm/kg (275-300); CALCIUM 7.4 mg/dL (8.5-10.1); CARBON DIOXIDE 27.9 mmol/L (21.0-32.0); CHLORIDE - SERUM 101 mmol/L (98-107); CREATININE - SERUM 0.3 mg/dL (0.6-1.3); GLUCOSE 90 mg/dL (74-106); MAGNESIUM - SERUM 1.8 mg/dL (1.8-2.4); PHOSPHOROUS 3.3 mg/dL (2.5-4.9); POTASSIUM - SERUM 3.5 mmol/L (3.5-5.1); SODIUM 135 mmol/L (136-145); UREA NITROGEN 7 mg/dL (7-18); eGFR NON AFRICAN AMERICAN > 90 mL/min (90-120)
[2020-01-14 08:34] LABS: BASOPHILS 0.1 % (0-2); EOSINOPHILS 2.4 % (0-7); HEMATOCRIT 34.4 % (36.0-48.0); HEMOGLOBIN 10.1 g/dL (12-16); IMMATURE GRANULOCYTES 0.9 % (0-5); LYMPHOCYTES 6.1 % (15-50); MCH 25.3 pg (26.0-34.0); MCHC 29.4 g/dL (31.0-37.0); MCV 86.2 fL (80.0-100.0); MEAN PLATELET VOLUME 8.9 fL (7.4-10.4); MONOCYTES 8.8 % (2-11); NEUTROPHILS 81.7 % (40-80); RBC 3.99 10x6/uL (4.00-5.40); WBC 14.9 10x3/uL (4.8-10.8)
[2020-01-14 08:36] LABS: PLATELET COUNT 451 10x3/uL (130-400)
[2020-01-14 09:51] VITALS: BP 137/80
[2020-01-14 14:57] VITALS: BP 137/87
--- NOTE | 2020-01-14 15:15 | NUR ---
WEBSTER REMOVED PER PROTOCOL. 8 ML REMOVED FROM BALLOON. TOLERATED WELL. CL IN REACH. WCTM ON [employer]IA [employer] WITH PABLO.
[2020-01-14 17:40] VITALS: BP 137/79
[2020-01-14 20:00] VITALS: BP 134/77
--- NOTE | 2020-01-14 20:00 | NUR ---
PT SITTING UP IN BEDSIDE CHAIR. AOX4, WITHOUT DISTRESS. BILAT DRESSING TO ABD FROM NIRMALA DRAINS BEING PULLED. IV LEFT HAND INFUSING PROTONIX @ 10, NS @ 50. ORDERS TO TAPER PROCAL OVER 4 HOURS, CHANGED RATE TO 30ML/HR. DC'D MORPHINE HEAD IRRIGATOR ORDERED. ASSISTED PT UP TO BATHROOM AND BACK TO BED. DENIES OTHER NEEDS. CL IN REACH, WILL CTM
[2020-01-15 04:00] VITALS: BP 162/76
[2020-01-15 07:32] LABS: HEMATOCRIT 33.7 % (36.0-48.0); LYMPHOCYTES 6.4 % (15-50); MCHC 29.7 g/dL (31.0-37.0); MCV 87.8 fL (80.0-100.0); MEAN PLATELET VOLUME 8.8 fL (7.4-10.4); NEUTROPHILS 84.1 % (40-80); PLATELET COUNT 453 10x3/uL (130-400); RBC 3.84 10x6/uL (4.00-5.40); RDW 18.5 % (11.5-14.5); WBC 11.6 10x3/uL (4.8-10.8)
[2020-01-15 07:36] LABS: CALC OSMOLALITY 264 mosm/kg (275-300); CALCIUM 7.4 mg/dL (8.5-10.1); CARBON DIOXIDE 28.5 mmol/L (21.0-32.0); CHLORIDE - SERUM 100 mmol/L (98-107); CREATININE - SERUM 0.5 mg/dL (0.6-1.3); GLUCOSE 86 mg/dL (74-106); MAGNESIUM - SERUM 1.9 mg/dL (1.8-2.4); PHOSPHOROUS 3.3 mg/dL (2.5-4.9); POTASSIUM - SERUM 3.9 mmol/L (3.5-5.1); SODIUM 134 mmol/L (136-145); UREA NITROGEN 6 mg/dL (7-18); eGFR NON AFRICAN AMERICAN > 90 mL/min (90-120)
--- NOTE | 2020-01-15 08:12 | NUR ---
UP TO BATHROOM, SERG WELL, IV INFUSING PER L HAND,CONT TO MONITOR PAIN
[2020-01-15 08:51] VITALS: BP 142/77
[2020-01-15 14:02] VITALS: BP 133/72
[2020-01-15 17:09] VITALS: BP 135/75
--- NOTE | 2020-01-15 19:51 | NUR ---
ASSISTED PATIENT TO AND FROM RESTROOM. PATIENT DENIES OTHER NEEDS. WILL CONTINUE TO MONITOR.
[2020-01-15 20:00] VITALS: BP 144/87
--- NOTE | 2020-01-15 22:08 | NUR ---
ADMINISTERED MEDS PER ORDERS. PATIENT DENIES OTHER NEEDS. WILL CONTINUE TO MONITOR.
[2020-01-16 04:00] VITALS: BP 140/79
[2020-01-16 06:06] LABS: CALC OSMOLALITY 261 mosm/kg (275-300); CALCIUM 7.9 mg/dL (8.5-10.1); CARBON DIOXIDE 26.7 mmol/L (21.0-32.0); CHLORIDE - SERUM 99 mmol/L (98-107); CREATININE - SERUM 0.4 mg/dL (0.6-1.3); GLUCOSE 85 mg/dL (74-106); MAGNESIUM - SERUM 1.8 mg/dL (1.8-2.4); PHOSPHOROUS 3.3 mg/dL (2.5-4.9); POTASSIUM - SERUM 3.4 mmol/L (3.5-5.1); SODIUM 133 mmol/L (136-145); eGFR NON AFRICAN AMERICAN > 90 mL/min (90-120)
[2020-01-16 06:07] LABS: UREA NITROGEN 4 mg/dL (7-18)
--- NOTE | 2020-01-16 08:35 | NUR ---
UP IN CHAIR, NO DISTRESS NOTED, SL TO LEFT HAND, ABD DRESSINGS DRY AND INTACT, CONT TO MONITOR PAIN
[2020-01-16 08:59] VITALS: BP 146/87
[2020-01-16 10:15] LABS: HEMATOCRIT 35.6 % (36.0-48.0); HEMOGLOBIN 10.4 g/dL (12-16); LYMPHOCYTES 10.5 % (15-50); MCH 25.9 pg (26.0-34.0); MCHC 29.2 g/dL (31.0-37.0); MCV 88.6 fL (80.0-100.0); MEAN PLATELET VOLUME 9.2 fL (7.4-10.4); NEUTROPHILS 77.3 % (40-80); PLATELET COUNT 514 10x3/uL (130-400); RBC 4.02 10x6/uL (4.00-5.40); RDW 18.7 % (11.5-14.5); WBC 9.9 10x3/uL (4.8-10.8)
[2020-01-16 12:52] VITALS: BP 125/84
[2020-01-16 17:04] VITALS: BP 129/82
--- NOTE | 2020-01-16 19:44 | NUR ---
PATIENT RESTING IN BED WITH NO S/S OF DISTRESS AND DENIES NEEDS AT THIS TIME. BED IN LOWEST POSITION AND CALL LIGHT WITHIN REACH. ENCOURAGED THE PATIENT TO CALL IF SHE HAS NEEDS. WILL CONTINUE TO MONITOR.
[2020-01-16 20:00] VITALS: BP 136/84
--- NOTE | 2020-01-16 21:25 | NUR ---
ADMINISTERED MEDS PER ORDERS. PATIENT DENIES OTHER NEEDS. WILL CONTINUE TO MONITOR.
[2020-01-17 04:00] VITALS: BP 137/86
[2020-01-17 06:30] LABS: HEMATOCRIT 32.9 % (36.0-48.0); HEMOGLOBIN 9.9 g/dL (12-16); LYMPHOCYTES 12.7 % (15-50); MCH 26.4 pg (26.0-34.0); MCHC 30.1 g/dL (31.0-37.0); MCV 87.7 fL (80.0-100.0); MEAN PLATELET VOLUME 8.7 fL (7.4-10.4); NEUTROPHILS 73.6 % (40-80); PLATELET COUNT 471 10x3/uL (130-400); RBC 3.75 10x6/uL (4.00-5.40); RDW 18.5 % (11.5-14.5)
[2020-01-17 06:54] LABS: ALKALINE PHOSPHATASE 73 U/L (30-120); ALT (SGPT) 9 U/L (10-68); BILIRUBIN - TOTAL 0.15 mg/dL (0.2-1.3); CALC OSMOLALITY 266 mosm/kg (275-300); CALCIUM 8.2 mg/dL (8.5-10.1); CARBON DIOXIDE 27.4 mmol/L (21.0-32.0); CHLORIDE - SERUM 102 mmol/L (98-107); GLUCOSE 94 mg/dL (74-106); PHOSPHOROUS 3.5 mg/dL (2.5-4.9); POTASSIUM - SERUM 4.1 mmol/L (3.5-5.1); PROTEIN - SERUM 6.5 g/dL (6.4-8.2); SODIUM 135 mmol/L (136-145); UREA NITROGEN 4 mg/dL (7-18)
[2020-01-17 07:01] LABS: CREATININE - SERUM 0.6 mg/dL (0.6-1.3); eGFR NON AFRICAN AMERICAN > 90 mL/min (90-120)
[2020-01-17 09:05] VITALS: BP 135/84
[2020-01-17] MEDS ORDERED: CARAFATE1 G NG (11:56)
[2020-01-17] MEDS ORDERED: METOPROLOL TART50 MG PO (12:02)
[2020-01-17] MEDS ORDERED: COLACE100 MG PO (12:35)
[2020-01-17] MEDS ORDERED: PROTONIX40 MG PO (12:36)
[2020-01-17] MEDS ORDERED: HYDROCODON-ACE1 EAC7 PO (12:37)
--- NOTE | 2020-01-17 13:01 | MORECARE ---
CASE MANAGEMENT DISCHARGE SUMMARY PATIENT: HUMBERTO WILSON UNIT: [id number] ADM DATE: 01/07/20 AGE: 59 : 56 SEX: F ROOM/BED: D.2215 AUTHOR: ITZ,DOC PHYSICIAN: REFERRING PHYSICIAN: YANELIS MAIN MD DATE OF SERVICE: 01/17/20 Discharge Plan Patient Name: HUMBERTO WILSON Facility: [facility]:[place] : 1960 Planned Disposition: Home with Home Health Anticipated Discharge Date: Discharge Date: Expected LOS: Initial Reviewer: [email or web address] Initial Review Date: 01/07/2020 Generated: 01/17/20 2:00 pm Comments DCP- Discharge Planning Updated by [email or web address]: Beronica Soliz on 01/17/20 11:[address] PATIENT WILL BE DISCHARGING HOME WITH [facility] WHERE SHE IS CURRENT WITH I HAVE SENT ALL CLINICALS TO [facility] WITH [facility] AND SHE WILL HANDLE THE START OF CARE. PATIENTS IS AT BEDSIDE DCP- Discharge Planning Updated by [email or web address]: Yessica Childers on 01/11/20 7:[address] Patient Name: HUMBERTO WILSON Admission Status: ER Accout number: [id number] Admission Date: 01-07-2020 : 1960 Admission Diagnosis:SEPSIS, UNSPECIFIED ORGANISM Attending: YANELIS MAIN Current LOS: 4 Anticipated DC Date: Planned Disposition: Home with Home Health Primary Insurance: MEDICAID [place] Discharge Planning Comments: CM met with patient to complete initial dc planning assessment. CM educated patient on the CM role and verbal consent given by patient to complete assessment. Patient lives at home with family. Patient is independent. At discharge patient plans to return home and feels this is a safe discharge. CM discussed availability of home health, rehab services, and medical equipment. Patient states that she has [facility] and plans to resume care upon discharge. MAHENDRA signed Patient will have family to transport home. Patient denied known discharge needs at this time. CM will continue to follow and will assist as needed with dc plans/needs. Mutton Puncher: Yessica Childers DCPIA - Discharge Planning Initial Assessment Updated by [email or web address]: Yessica Childers on 01/11/20 8:41 pm * Is the patient Alert and Oriented? Yes * How many steps to enter\exit or inside your home? RAMPS * PCP [facility] * Pharmacy [facility] * Preadmission Environment Home with Family * ADLs Independent * Other Equipment WALKER, W/C , NEBULIZER, SC * List name and contact numbers for known caregivers / representatives who currently or will assist patient after discharge: YANELIS DEL CID [facility] - [phone] * Verbal permission to speak to the caregivers and representatives has been obtained from the patient. Yes * Community resources currently utilized Home Health * Please name any agencies selected above. [facility] * Additional services required to return to the preadmission environment? No * Can the patient safely return to the preadmission environment? Yes * Has this patient been hospitalized within the prior 30 days at any hospital? No External Providers External Provider: [facility] Next Contact Date: Service Request Date: Service Type: Resolution: Reviewer: Comments: Coverage Notice Reviewer: [email or web address] Nery Childers Notice Issued Date-Time: 01/11/2020 20:34 Notice Type: Patient Choice Letter Notice Delivered To: Patient Relationship to Patient: Self Water Treatment Plant Engineer Name: Delivery Method: HAND - Hand Delivered Jaqui Days: Prior Verbal Notification: Recipient Understood Notice: Yes Recipient Signature: Yes Med Rec Note Co-signed by Attending: Coverage Notice Comment: LORIN [facility] Last DP export: 01/11/20 7:48 pm Patient Name: HUMBERTO WILSON Page [id number] at 1301 All edits/amendments must be made on the electronic document DICTATION DATE: 01/17/20 1301 TILE APPLICATOR: DESIRAE 01/17/20 1301 RPT#: [id number] DC DATE: STATUS: ADM IN [facility] [address] [place] [address] END OF REPORT
--- NOTE | 2020-01-17 13:24 | NUR ---
DISCHARGE INSTRUCTIONS COMPLETED. PATIENT STATES UNDERSTANDING. IV D/C CATH INTACT.
--- NOTE | 2020-01-17 13:43 | NUR ---
LEFT UNIT FOR TRANSPORT HOME VIA WHEELCHAIR.
--- NOTE | 2020-01-20 01:30 | MORECARE ---
CASE MANAGEMENT DISCHARGE SUMMARY PATIENT: HUMBERTO WILSON UNIT: [id number] ADM DATE: 01/07/20 AGE: 59 : 56 SEX: F ROOM/BED: D.2215 AUTHOR: ITZ,DOC PHYSICIAN: REFERRING PHYSICIAN: YANELIS MAIN MD DATE OF SERVICE: 01/20/20 Discharge Plan Patient Name: HUMBERTO WILSON Facility: [facility]:[place] : 1960 Planned Disposition: Home with Home Health Anticipated Discharge Date: Discharge Date: 01/17/2020 Expected LOS: Initial Reviewer: [email or web address] Initial Review Date: 01/07/2020 Generated: 01/20/20 2:29 am Comments DCP- Discharge Planning Updated by [email or web address]: Beronica Soliz on 01/17/20 11:[address] PATIENT WILL BE DISCHARGING HOME WITH [facility] WHERE SHE IS CURRENT WITH I HAVE SENT ALL CLINICALS TO [facility] WITH [facility] AND SHE WILL HANDLE THE START OF CARE. PATIENTS IS AT BEDSIDE DCP- Discharge Planning Updated by [email or web address]: Yessica Childers on 01/11/20 7:[address] Patient Name: HUMBERTO WILSON Admission Status: ER Accout number: [id number] Admission Date: 01-07-2020 : 1960 Admission Diagnosis:SEPSIS, UNSPECIFIED ORGANISM Attending: YANELIS MAIN Current LOS: 4 Anticipated DC Date: Planned Disposition: Home with Home Health Primary Insurance: MEDICAID [place] Discharge Planning Comments: CM met with patient to complete initial dc planning assessment. CM educated patient on the CM role and verbal consent given by patient to complete assessment. Patient lives at home with family. Patient is independent. At discharge patient plans to return home and feels this is a safe discharge. CM discussed availability of home health, rehab services, and medical equipment. Patient states that she has [facility] and plans to resume care upon discharge. MAHENDRA signed Patient will have family to transport home. Patient denied known discharge needs at this time. CM will continue to follow and will assist as needed with dc plans/needs. Qc Tech: Yessica Childers DCPIA - Discharge Planning Initial Assessment Updated by [email or web address]: Yessica Childers on 01/11/20 8:41 pm * Is the patient Alert and Oriented? Yes * How many steps to enter\exit or inside your home? RAMPS * PCP [facility] * Pharmacy [facility] * Preadmission Environment Home with Family * ADLs Independent * Other Equipment WALKER, W/C , NEBULIZER, SC * List name and contact numbers for known caregivers / representatives who currently or will assist patient after discharge: YANELIS DEL CID [facility] - [phone] * Verbal permission to speak to the caregivers and representatives has been obtained from the patient. Yes * Community resources currently utilized Home Health * Please name any agencies selected above. [facility] * Additional services required to return to the preadmission environment? No * Can the patient safely return to the preadmission environment? Yes * Has this patient been hospitalized within the prior 30 days at any hospital? No Coverage Notice Reviewer: [id number] - Yessica Childers Notice Issued Date-Time: 01/11/2020 20:34 Notice Type: Patient Choice Letter Notice Delivered To: Patient Relationship to Patient: Self Laboratory Secretary Name: Delivery Method: HAND - Hand Delivered Jaqui Days: Prior Verbal Notification: Recipient Understood Notice: Yes Recipient Signature: Yes Med Rec Note Co-signed by Attending: Coverage Notice Comment: LORIN [facility] POWER Nery GARDUNO Last DP export: 01/17/20 12:01 p Patient Name: HUMBERTO WILSON Page [id number] at 0130 All edits/amendments must be made on the electronic document DICTATION DATE: 01/20/20128 INVENTORY ANALYST: DESIRAE 01/20/20 0129 RPT#: [id number] DC DATE:01/17/20 STATUS: DIS IN [facility] [address] [place] [address] END OF REPORT
== END 2020-01-17 13:43 | disposition home health service (06) | DRG 853 ==
LOC: D.ER 11:39 → D.CVICU 11:53 → D.ICU 11:53 → D.M2 11:53 → D.ICU 01-08 17:21 → D.CVICU 01-10 23:42 → D.ICU 01-12 13:49 → D.MS 01-12 20:05
PROVIDERS: Family Medicine; Family Medicine Adult Medicine; Internal Medicine Pulmonary Disease; Surgery; ADMIT Family Medicine; ATTEND Family Medicine
PROC: 0DU647Z Supplement Stomach with Autologous Tissue Substitute, Percutaneous Endoscopic Approach (ICD-10-PCS; principal; 2020-01-08 14:30)
DX: A41.9 Sepsis, unspecified organism (principal); K65.9 Peritonitis, unspecified; J96.01 Acute respiratory failure with hypoxia; J18.1 Lobar pneumonia, unspecified organism; K25.5 Chronic or unspecified gastric ulcer with perforation; I20.0 Unstable angina; F17.203 Nicotine dependence unspecified, with withdrawal; J98.11 Atelectasis; D64.9 Anemia, unspecified; G62.9 Polyneuropathy, unspecified; H40.9 Unspecified glaucoma; E03.9 Hypothyroidism, unspecified; I10 Essential (primary) hypertension; M19.90 Unspecified osteoarthritis, unspecified site; M81.0 Age-related osteoporosis without current pathological fracture; F41.8 Other specified anxiety disorders; G89.29 Other chronic pain; R59.9 Enlarged lymph nodes, unspecified; J43.9 Emphysema, unspecified; R53.81 Other malaise; K66.8 Other specified disorders of peritoneum

== ENCOUNTER → 2020-04-19 07:25 | Outpatient (CLI) | payer MEDICAID ==
[2020-01-08 12:22] VITALS: BMI 25.3
[~2020-04-19 07:25] MED LIST: ACETAMINOPHEN325 MG PO; ASPIRIN325 MG PO; BENTYL 20 MG TA20 MG PO; BETAPACE 80 MG80 MG PO; CARAFATE1 G NG; COLACE100 MG PO; HYDROCODON-ACE1 EAC7 PO; LEVOXYL25 MCG PO; METOPROLOL TART50 MG PO; NEURONTIN 400400 MG PO; OMEPRAZOLE20 M1 PO; PROTONIX40 MG PO; TYLENOL #4 W/CO1 TAB PO; ZYLOPRIM100 MG PO
== END | disposition home or self-care (01) ==
LOC: D.NM 07:25
PROVIDERS: ATTEND Surgery
DX: R11.0 Nausea (principal)